=== PATIENT | male | born 1990 | race Caucasian/White ===

== ENCOUNTER → 2017-05-20 | Emergency (ER) | payer OTHER ==
[~2017-05-20] VITALS: Ht 182.9 cm; Wt 81.6 kg
== END | disposition home or self-care (01) ==
LOC: ER 08:34
DX: B34.9 Viral infection, unspecified (principal)

== ENCOUNTER 2018-09-28 14:27 | Emergency (ER) | payer OTHER ==
[~2018-09-28] VITALS: Ht 185.4 cm; Wt 88.5 kg
== END 2018-09-29 00:12 | disposition home or self-care (01) ==
LOC: ER 14:27
DX: N39.0 Urinary tract infection, site not specified (principal)